=== PATIENT | female | born 1960 | race Caucasian/White ===

== ENCOUNTER 2018-01-08 05:59 | Day surgery (SDC) | payer OTHER ==
[2018-01-08] MEDS ORDERED: PROPOFOL 40 ML (07:54)
[2018-01-08] MEDS ORDERED: FENTAnyl 50 MCG/ML VIAL (07:54)
== END 2018-01-08 15:06 | disposition home or self-care (01) ==
LOC: GIL 05:59
DX: Z12.11 Encounter for screening for malignant neoplasm of colon (principal); K29.50 Unspecified chronic gastritis without bleeding; K64.8 Other hemorrhoids
CPT/HCPCS: 43239; 88305; 88312

== ENCOUNTER 2018-11-11 06:29 | Day surgery (SDC) | payer OTHER ==
[2018-11-11] MEDS ORDERED: BALANCED SALT SOLN 15 ML OPH IRRIG (07:00)
[2018-11-11] MEDS: MOXIFLOXACIN 0.5% 3 ML OPH OPER (08:10)
[2018-11-11] MEDS ORDERED: SOD CHLORIDE 0.9% 1,000 ML IV (08:30)
[2018-11-11] MEDS ORDERED: EPINEPHRINE 0.1 MG IRR (09:00)
[2018-11-11] MEDS ORDERED: GENTAMICIN IRR (09:00)
[2018-11-11] MEDS ORDERED: [UNRECOGNIZED DRUG - OTHER] IRR (09:00)
[2018-11-11] MEDS ORDERED: MITOMYCIN 5 MG INJ OP (09:00)
[2018-11-11] MEDS ORDERED: PROPOFOL 200 MG INJ (09:40)
[2018-11-11] MEDS ORDERED: MIDAZOLAM 1 MG/ML 2 ML INJ (09:43)
[2018-11-11] MEDS ORDERED: ETOMIDATE 20 MG INJ (09:43)
[2018-11-11] MEDS ORDERED: FENTAnyl 50 MCG/ML VIAL (09:43)
[2018-11-11] MEDS ORDERED: LIDOCAINE 2% (SDV) 5 ML INJ (09:43)
[2018-11-11] MEDS ORDERED: ONDANSETRON 4 MG INJ IV (10:00)
[2018-11-11] MEDS ORDERED: FENTAnyl 50 MCG/ML VIAL IV ×2 (10:00)
[2018-11-11] MEDS ORDERED: LABETALOL HCL 20MG INJ IV (10:00)
[2018-11-11] MEDS ORDERED: OXYCODONE/ACETAMINOPHEN (5/325) TAB PO ×2 (10:00)
[2018-11-11] MEDS: TETRACAINE 0.5% 4 ML OPH (10:25)
[2018-11-11] MEDS: LIDOCAINE 1%/EPI (1:100,000) (MDV) 20 ML (10:26)
[2018-11-11] MEDS: TOBRAMYCIN/DEXAMETH 3.5 GM OPH OINT (10:28)
== END 2018-11-11 11:35 | disposition home or self-care (01) ==
LOC: SDS 06:29
DX: H11.001 Unspecified pterygium of right eye (principal); I10 Essential (primary) hypertension
CPT/HCPCS: 65426